=== PATIENT | male | born 1960 | race Caucasian/White ===

== ENCOUNTER 2017-11-08 05:37 | Outpatient (CLI) | payer MEDICARE ==
[~2017-11-08] VITALS: Ht 188 cm; Wt 102.1 kg
[2017-11-08] MEDS ORDERED: MULT-35 PO (09:27)
[2017-11-08] MEDS ORDERED: MORP100T20 PO (09:27)
[2017-11-08] MEDS ORDERED: DULO60CA6 PO (09:27)
[2017-11-08] MEDS ORDERED: DOCU100T7 PO (09:27)
[2017-11-08] MEDS ORDERED: BACL20TA PO (09:27)
== END 2017-11-08 09:41 ==
LOC: PREOP 05:37
PROVIDERS: ATTEND Orthopaedic Surgery Orthopaedic Surgery of the Spine
DX: Z01.818 Encounter for other preprocedural examination (principal); M54.5 Low back pain

== ENCOUNTER 2017-11-14 10:08 | Day surgery (SDC) | payer MEDICARE ==
[~2017-11-14] VITALS: Ht 188 cm; Wt 102.1 kg
[~2017-11-14 10:08] MED LIST: BACL20TA PO; DOCU100T7 PO; DULO60CA6 PO; MORP100T20 PO; MULT-35 PO
[2017-11-14 10:15] VITALS: BP 123/96
[2017-11-14] MEDS ORDERED: CATHETER FLUSH 10 ML SYR IV PRN (10:15)
[2017-11-14] MEDS ORDERED: ceFAZolin 2 GM IV Premixed 50 ML IV ONE (10:15)
[2017-11-14] MEDS ORDERED: BUP/EPI 0.5% 1:200,000 (SENSORCAINE) 30 ML VIAL ONE (10:20)
--- NOTE | 2017-11-14 10:20 | Progress Note-Pre Operative ---
Pre-Operative Progress Note H&P Reviewed The H&P was reviewed, patient examined and no changes noted. Date Seen by Provider: Nov 14, 2017 Time Seen by Provider: 10:20 Date H&P Reviewed: Nov 14, 2017 Time H&P Reviewed: 10:20 Pre-Operative Diagnosis: Lumbar Stenosis/Radiculopathy NATALEE MACDONALD MD Nov 14, 2017 10:20 am
[2017-11-14] MEDS ORDERED: GENTAMICIN 40 MG/ML 2 ML INJ SDV ONE (10:21)
[2017-11-14] MEDS ORDERED: VANCOMYCIN 1000 MG/VIAL ONE (10:21)
[2017-11-14] MEDS ORDERED: fentaNYL INJECTION 100 MCG/2 ML AMP ONE (10:25)
[2017-11-14] MEDS ORDERED: LIDOCAINE PF 2% 5 ML (XYLOCAINE) VIAL ONE (10:25)
[2017-11-14] MEDS ORDERED: ROCURONIUM 10 MG/ML 5 ML SYRINGE IV ONE (10:25)
[2017-11-14] MEDS ORDERED: MIDAZOLAM 2 MG/2 ML (VERSED) VIAL ONE (10:25)
[2017-11-14] MEDS ORDERED: proPOfol 200 MG/20 ML (DIPRIVAN) VIAL IV ONE ×2 (10:25→12:07)
[2017-11-14] MEDS: LACTATED RINGERS 1,000 ML IV PRN ×2 (10:35→11:29)
[2017-11-14] MEDS ORDERED: DEXMEDETOMIDINE 200 MCG/2 ML (PRECEDEX) VIAL IV ONE (10:35)
[2017-11-14] MEDS ORDERED: NEOSTIGMINE 1 MG/ML 5 ML SYRINGE ONE (11:34)
[2017-11-14] MEDS ORDERED: GLYCOPYRROLATE 0.2 MG/ML (ROBINUL) 2 ML VIAL ONE (11:34)
--- NOTE | 2017-11-14 11:39 | Progress Note-Post Operative ---
Post-Operative Progess Note Surgeon (s)/Layer Out Plate Glass (s) Surgeon NATALEE MACDONALD MD Layer Out Plate Glass: [id number] Fragoso Pre-Operative Diagnosis Lumbar Stenosis/Radiculopathy Post-Operative Diagnosis Same Procedure & Operative Findings Date of Procedure 11/14/17 Procedure Performed/Findings Placement of permanent spinal cord stimulator via laminectomy Anesthesia Type GETA Estimated Blood Loss Estimated blood loss (mL): min Specimens/Packing Specimens Removed none NATALEE MACDONALD MD Nov 14, 2017 11:39 am
[2017-11-14] MEDS ORDERED: SEVOFLURANE (ULTANE) 15 ML INHAL SOLN ONE ×5 (11:52)
[2017-11-14] MEDS ORDERED: LACTATED RINGERS 1,000 ML IV ONE (11:52)
[2017-11-14] MEDS ORDERED: HYDROmorphone 1 MG/ML (DILAUDID) 1 ML SYRINGE IV PRN (12:15)
[2017-11-14] MEDS ORDERED: ONDANSETRON 4 MG/2 ML (SDV) Z0FRAN IVP PRN (12:15)
--- NOTE | 2017-11-14 12:18 | Diagnostic Imaging Report ---
INDICATION: Undergoing permanent spinal cord stimulator placement. TECHNIQUE: Two intraprocedural images thoracolumbar spine, 11:26 AM. CORRELATION STUDY: None FINDINGS: Intraprocedure imaging demonstrates a thoracic spinal cord stimulator lead to be present. Leads appear to enter the spinal canal over the lower thoracic spine and then coursing superiorly. Partial visualization of the lumbar spinal fixation hardware. Fluoroscopy time: 15 seconds. IMPRESSION: 1. Fluoroscopy utilized for assistance in placement of a thoracic spinal cord stimulator lead. Dictated by: Dictated on workstation # [id number]
[2017-11-14] MEDS: morphine INJ 10 MG/ML 1ML (SYR OR VIAL) IVP PRN ×2 (12:23→12:30)
[2017-11-14 13:00] VITALS: BP 111/51
[2017-11-14] MEDS ORDERED: HYDROcodone/APAP 5 MG/325 MG (LORTAB) TAB ONE (13:12)
[2017-11-14] MEDS ORDERED: HYDROcodone/APAP 5 MG/325 MG (LORTAB) TAB PO ONE (13:15)
[2017-11-14 13:30] VITALS: BP 105/64
[2017-11-14 14:00] VITALS: BP 110/59
[2017-11-14 14:05] VITALS: BP 110/59
--- NOTE | 2017-11-14 18:04 | OPERATIVE REPORT ---
DATE OF SERVICE: 11/14/2017 PREOPERATIVE DIAGNOSES: Post-laminectomy syndrome, chronic radiculopathy and chronic lumbago. POSTOPERATIVE DIAGNOSES: Post-laminectomy syndrome, chronic radiculopathy and chronic lumbago. PROCEDURE PERFORMED: 1. T9-T10 laminectomy for placement of T8 level paddle electrode for spinal cord stimulation. 2. Right-sided battery placement for spinal cord stimulation and complex programing for spinal cord stimulator. DATE AND TIME OF SURGERY: Please see anesthesia record. SURGEON: Natalee Morton MD DIE ASSEMBLER: CHASE Fragoso ROLE OF LIGHTING SPECIALIST: Aid in retraction of the procedure, aid in implantation and wound closure. ANESTHESIA: General endotracheal. ESTIMATED BLOOD LOSS: Minimal. INTRAVENOUS FLUIDS: Please see anesthesia record. ANTIBIOTICS: Ancef. COMPLICATIONS: None. IMPLANTS USED: [employer] MRI battery and Penta lead. SPECIMENS: None. INDICATIONS FOR PROCEDURE: The patient is a 56-year-old male with previous fusion, who had a spinal cord stem trial. Good relief desires permanent placement. NEUROMONITORING: Standard intraoperative neuro monitoring carried out by means of real time continuous high quality bidirectional mode, audio and visual communication to both the instrument technician helper and surgeon by Dr. Sánchez. SSEPs, EMGs and TOFs were carried out continuously throughout the procedure and stable. DESCRIPTION OF PROCEDURE: The patient was taken to the preoperative holding area and brought back to the operative suite. After adequate induction of general anesthesia, preoperative antibiotics, turned prone on the Dileep table, careful padding to all extremities, sterilely prepped and draped posterior thoracic and lumbar spine. Localization at T9-T10 level was performed and then a small incision made. Laminotomy was created. Dural separator was utilized and the paddle electrode was placed into the epidural space overlying the T8 body where he had his best pain relief. Hemostasis was assured with bipolar cautery, FloSeal, and bone wax. The lead was then anchored at the lamina level and then at the fascial level strain relief loops were created. It was tunneled into the right-sided flank where battery site was created and was connected to the battery. System was functioning well. Wounds were irrigated, closed in layers. The patient transferred to recovery room in stable condition having tolerated the procedure well. Job ID: [id number] DocumentID: [id number] Dictated Date: 11/14/2017 11:37:16 [employer] Officer Date: 11/14/2017 18:04:22 Dictated By: NATALEE MORTON MD MTDD
== END 2017-11-14 14:05 | disposition home or self-care (01) ==
LOC: SDC 10:08
PROVIDERS: ATTEND Orthopaedic Surgery Orthopaedic Surgery of the Spine
DX: M96.1 Postlaminectomy syndrome, not elsewhere classified (principal); M54.16 Radiculopathy, lumbar region; G47.33 Obstructive sleep apnea (adult) (pediatric); Z87.891 Personal history of nicotine dependence
CPT/HCPCS: 87081